=== PATIENT | female | born 1990 | race Caucasian/White ===

== ENCOUNTER 2019-04-06 21:12 | Emergency (ER) | payer OTHER ==
[~2019-04-06] VITALS: Ht 167.6 cm; Wt 76.4 kg
[2019-04-06 22:26] LABS: BASO # 0.1 10^3/uL (0.0-0.2); BASO % 0.6 % (0.0-1.0); EOS # 0.1 10^3/uL (0.0-0.50); EOS % 0.9 % (0.0-3.0); HEMATOCRIT 41.2 % (36.0-47.0); HEMOGLOBIN 13.5 g/dl (12.0-15.5); LYMPH # 3.7 10^3/uL (1.5-4.5); MEAN CORPUSCULAR HEMOGLOBIN 32.1 pg (27.0-33.0); MEAN CORPUSCULAR HGB CONC 32.8 g/dl (32.0-36.5); MEAN CORPUSCULAR VOLUME 98.1 fl (80.0-96.0); MONO # 0.6 10^3/uL (0.0-0.8); MONO % 6.6 % (0.0-5.0); NEUTROPHILS # 4.3 10^3/uL (1.8-7.7); NEUTROPHILS % 49.6 % (36.0-66.0); PLATELET COUNT, AUTOMATED 177 10^3/uL (150-450); WHITE BLOOD COUNT 8.7 10^3/uL (4.0-10.0)
[2019-04-06 22:43] LABS: BLOOD UREA NITROGEN 20 MG/DL (7-18); CALCIUM LEVEL 9.6 MG/DL (8.5-10.1); CARBON DIOXIDE LEVEL 30 MEQ/L (21-32); CHLORIDE LEVEL 104 MEQ/L (98-107); CREATININE FOR GFR 0.98 MG/DL (0.55-1.30); GLOMERULAR FILTRATION RATE > 60.0 (>60); GLUCOSE, FASTING 97 MG/DL (70-100); POTASSIUM SERUM 3.9 MEQ/L (3.5-5.1); SODIUM LEVEL 141 MEQ/L (136-145)
[2019-04-07 01:19] LABS: CHLAMYDIA DNA AMPLIFICATION NEGATIVE (NEGATIVE); GC DNA AMPLIFICATION NEGATIVE (NEGATIVE)
--- NOTE | 2019-04-07 02:06 | REPVR ---
EXAM: US Pelvis Complete, Transabdominal and US Pelvis, Transvaginal and US Duplex Artery and Vein, Ovaries, Complete EXAM DATE/TIME: 04/06/2019 12:35 AM CLINICAL HISTORY: 29 years old, female; Pelvic pain; Additional info: Adnexal tenderness TECHNIQUE: Imaging protocol: Real-time transabdominal and transvaginal pelvic ultrasound (complete) with image documentation. Transvaginal imaging was used for better evaluation of the endometrium and adnexa. Real-time duplex ultrasound scan of the arterial and venous flow of the ovaries with B-mode, color Doppler flow and spectral waveform analysis. COMPARISON: No relevant prior studies available. FINDINGS: Uterus/cervix: The anteverted uterus is normal in appearance and measures 3.3 cm x 3.6 cm x 4.6 cm. The endometrium is unremarkable and measures 10 mm in thickness. Right adnexa: The right ovary is normal in appearance. No right ovarian cyst or right adnexal mass is noted. The right ovary measures 3.8 cm x 2.9 cm x 3.1 cm. The arterial and venous color Doppler flow and spectral waveforms within the right ovary are within normal limits, without evidence for right ovarian torsion. Left adnexa: The left ovary measures 4.1 cm x 2.7 cm x 2.6 cm and contains a 2.4 cm x 2.3 cm x 2.4 cm avascular round echogenic lesion. There is a 1.4 cm x 1 cm x 1.2 cm follicle in the left ovary. The arterial and venous color Doppler flow and spectral waveforms within the left ovary are within normal limits, without evidence for left ovarian torsion. Free fluid: There is a trace amount of free fluid in the cul-de-sac. Bladder: The urinary bladder is unremarkable. IMPRESSION: 1. 2.4 cm x 2.3 cm x 2.4 cm avascular round echogenic lesion in the left ovary, which may represent a left ovarian dermoid cyst. 2. No ovarian torsion. Electronically signed by: Humza Dumont On 04/07/2019 02:06:13 AM
[2019-04-07 02:40] VITALS: BP 101/61
--- NOTE | 2019-04-07 09:18 | ED PDOC ---
Post-Departure Follow-Up ft nika taylor faxed formal report of pelvic us for fu Tom Matamoros MD Apr 07, 2019 09:18
== END 2019-04-07 02:44 | disposition home or self-care (01) ==
LOC: M ED 21:12
DX: N83.9 Noninflammatory disorder of ovary, fallopian tube and broad ligament, unspecified (principal); R11.0 Nausea; E28.2 Polycystic ovarian syndrome